=== PATIENT | female | born 1960 | race Caucasian/White ===

== ENCOUNTER 2018-05-07 10:43 | Outpatient (CLI) | payer OTHER ==
[~2018-05-07 10:43] MED LIST: CIPRO HC OTIC S10 ML OT; CLONAZEPAM0.5 MG; CLONAZEPAM1 MG; FIORINAL CAPSUL1 CAP; PANADOL EXTRA500 MG; ZITHROMAX200 MG/5 M PO; ZITHROMAX200 MG/53 PO
== END 2018-05-07 10:54 | disposition home or self-care (01) ==
LOC: RAD 10:43
DX: R07.89 Other chest pain (principal); I10 Essential (primary) hypertension; Z01.818 Encounter for other preprocedural examination

== ENCOUNTER 2018-05-17 10:40 | Emergency (ER) | payer OTHER ==
[~2018-05-17] VITALS: Ht 165.1 cm; Wt 72.6 kg
== END 2018-05-17 16:53 | disposition home or self-care (01) ==
LOC: ER 10:40
DX: K29.60 Other gastritis without bleeding (principal)

== ENCOUNTER 2018-05-22 19:31 | Emergency (ER) | payer OTHER ==
[~2018-05-22] VITALS: Ht 152.4 cm; Wt 68.0 kg
== END 2018-05-22 22:40 | disposition home or self-care (01) ==
LOC: ER 19:31
DX: K29.70 Gastritis, unspecified, without bleeding (principal)

== ENCOUNTER 2018-06-29 09:54 | Emergency (ER) | payer OTHER ==
[~2018-06-29] VITALS: Ht 157.5 cm; Wt 61.2 kg
== END 2018-06-29 19:07 | disposition home or self-care (01) ==
LOC: ER 09:54
DX: K59.09 Other constipation (principal); R10.84 Generalized abdominal pain